=== PATIENT | female | born 1945 | race Caucasian/White ===

== ENCOUNTER 2016-03-18 11:00 | Outpatient (RCR) | payer MEDICARE | END 2016-06-16 | disposition home or self-care (01) | LOC: DT 11:00 | PROVIDERS: ATTEND Internal Medicine | DX: E11.9 Type 2 diabetes mellitus without complications (principal) | CPT/HCPCS: 97802 ==

== ENCOUNTER → 2016-03-18 | Outpatient (CLI) | payer MEDICARE ==
[~2016-03-18] MED LIST: AMIT25TA9 PO; AMT10T PO; ASPI-860 PO; ATN50T PO; CPR500T PO; DULO30CA PO; ESTR1TAB24 PO; HYDR-3702 PO; KCL20TCR PO; LEVO112T2 PO; LEVO125T6 PO; LEVO1CAP3 PO; LORA1TAB PO; MELO15TA14 PO; METF500T PO; NF-METANX PO; OMEP20TA PO; OMEP20TA33 PO; PHEN-639 PO; PRAV40TA2 PO; RANI150T15 PO; SERT100T PO; SUCR1TAB29 PO; TRAZ100T92 PO; TRM50T PO; VALS160T2 PO; VALS160T23 PO; [UNRECOGNIZED DRUG - OTHER]
--- NOTE | 2016-03-18 15:36 | Diagnostic Imaging Report ---
INDICATION: 70-year-old postmenopausal female. COMPARISON: DEXA of 01/16/2010. FINDINGS: This scan is considered osteopenic according to the World Health Organization guidelines. The lowest T score is -1.5 in the total lumbar spine. This indicates an increased risk of fracture. Since prior DEXA of 01/16/2010, there has been a 13% decrease in bone mineral density in the lumbar spine, although this is not statistically significant. Please refer to the detailed Bone Density report faxed separately from this report. IMPRESSION: Osteopenia with a moderate fracture risk. Dictated by: Dictated on workstation # [id number]
--- NOTE | 2016-03-19 09:33 | Diagnostic Imaging Report ---
INDICATION: Screening mammogram. COMPARISON: January 16, 2010. TECHNIQUE: Digital screening mammography was obtained with CAD. FINDINGS: A few punctate calcifications are seen in the mid aspect of the left breast which were not well demonstrated on the prior exams. These are likely benign. Nonetheless, diagnostic mammography is needed. Scattered fibroglandular densities are seen bilaterally. The right breast is stable. IMPRESSION: 1. Group of microcalcifications in the left breast. Recommend magnification views. 2. Stable right breast. ACR BI-RADS Category 0: Incomplete. (Needs additional imaging evaluation). Result letter will be mailed to the patient. Note: At least 10% of breast cancer is not imaged by mammography. Dictated by: Dictated on workstation # [id number]
== END ==
LOC: RAD 13:00
PROVIDERS: ATTEND Internal Medicine
DX: Z12.31 Encounter for screening mammogram for malignant neoplasm of breast (principal); Z78.0 Asymptomatic menopausal state; R92.0 Mammographic microcalcification found on diagnostic imaging of breast; M85.89 Other specified disorders of bone density and structure, multiple sites
CPT/HCPCS: 77080; G0202

== ENCOUNTER → 2016-04-03 | Outpatient (CLI) | payer MEDICARE ==
[2016-04-03 09:43] LABS: BASOPHILS % (AUTO) 2 % (0-2); EOSINOPHILS # (AUTO) 0.1 10^3uL; EOSINOPHILS % (AUTO) 2 % (0-4); LYMPHOCYTES # (AUTO) 1.1 X10^3; MEAN CORPUSCULAR HEMOGLOBIN 29.3 PG (26.0-34.0); MEAN CORPUSCULAR HGB CONC 33.3 g/dL (31.0-37.0); MEAN CORPUSCULAR VOLUME 88 FL (80-100); MEAN PLATELET VOLUME 11.1 FL (6.0-9.5); MONOCYTES # (AUTO) 0.4 X10^3; MONOCYTES % (AUTO) 9 % (3-11); NEUTROPHILS # (AUTO) 2.5 X10^3; NEUTROPHILS % (AUTO) 60 % (51-67); PLATELET COUNT 225 10^3uL (150-450); WHITE BLOOD COUNT 4.24 10^3uL (4.0-11.0)
[2016-04-03 10:13] LABS: ALBUMIN 4.3 g/dL (3.4-5.0); ANION GAP 16.3 MEQ/L (3-15); CALCULATED IONIZED CALCIUM 4.5 mg/dL (3.8-4.6); TOTAL PROTEIN 7.3 g/dL (6.4-8.5)
== END ==
LOC: LAB 09:21
PROVIDERS: ATTEND Internal Medicine
DX: I10 Essential (primary) hypertension (principal); E11.9 Type 2 diabetes mellitus without complications; E03.8 Other specified hypothyroidism
CPT/HCPCS: 36415; 80053; 84439; 84443; 85025

== ENCOUNTER → 2016-05-20 | Outpatient (CLI) | payer MEDICARE ==
[2016-05-20 08:44] LABS: MEAN CORPUSCULAR HGB CONC 33.7 g/dL (31.0-37.0); MEAN PLATELET VOLUME 10.6 FL (6.0-9.5); WHITE BLOOD COUNT 4.53 10^3uL (4.0-11.0)
[2016-05-20 10:58] LABS: ANION GAP 12.1 MEQ/L (3-15)
== END ==
LOC: RAD 08:27
PROVIDERS: ATTEND Internal Medicine
DX: I82.413 Acute embolism and thrombosis of femoral vein, bilateral (principal); D63.8 Anemia in other chronic diseases classified elsewhere; E11.9 Type 2 diabetes mellitus without complications; I10 Essential (primary) hypertension; E03.8 Other specified hypothyroidism
CPT/HCPCS: 36415; 80048; 84439; 84443; 85027; 85379

== ENCOUNTER → 2016-07-01 | Outpatient (CLI) | payer MEDICARE | LOC: LAB 13:26 | PROVIDERS: ATTEND Internal Medicine | DX: E03.8 Other specified hypothyroidism (principal); M54.5 Low back pain | CPT/HCPCS: 36415; 84439; 84443; 85652 ==